=== PATIENT | female | born 1985 | race Caucasian/White ===

== ENCOUNTER 2018-01-31 12:30 | Emergency (ER) | payer OTHER ==
[~2018-01-31] VITALS: Ht 162.6 cm; Wt 63.5 kg
[~2018-01-31 12:30] MED LIST: ALDACTONE25 MG PO; ASSORTED FRUIT G4 GM PO; BUM1 PO; CARVEDILOL3.125 M1 PO; FERROUS SULFAT325 M2 PO; LANTUS SOLOS100 U/M1 SQ; LIPI20 PO; NEURONTIN400 MG PO; NOVOLIN N100 U/ML SC; ZES10 PO
[2018-01-31 12:39] VITALS: Ht 162.6 cm; Wt 63.5 kg
[2018-01-31] MEDS ORDERED: GABAPENTIN600 M1 PO (12:48)
[2018-01-31] MEDS ORDERED: MAVYRET 100-401 EACH PO (12:49)
[2018-01-31] MEDS ORDERED: VELTASSA16.8 GM PO (12:51)
[2018-01-31] MEDS ORDERED: TRESIBA FL100 UNIT/1 SQ (12:51)
[2018-01-31] MEDS ORDERED: CRESTOR10 M1 PO (12:52)
[2018-01-31] MEDS ORDERED: HUMALOG100 U/ML SQ (12:54)
[2018-01-31] MEDS ORDERED: CHLORTHALIDONE25 MG PO (12:56)
[2018-01-31 13:18] LABS: BASOPHIL % 0.2 % (0-2); PLATELET COUNT 287 x10^3mcL (130-400); RED CELL DISTRIBUTION WIDTH 14.1 % (11.5-14.5)
[2018-01-31 13:35] LABS: CALCIUM 8.2 mg/dL (8.5-10.1); CARBON DIOXIDE 23.3 mmol/L (21-32); CREATININE SERUM 1.7 mg/dL (0.6-1.0); POTASSIUM SERUM 5.1 mmol/L (3.5-5.1)
[2018-01-31 13:42] LABS: BILIRUBIN TOTAL 0.6 mg/dL (0.20-1.00); PHOSPHOROUS 3.8 mg/dL (2.5-4.9); TOTAL PROTEIN, SERUM 6.4 g/dL (6.4-8.2)
[2018-01-31 14:52] VITALS: BP 166/98
== END 2018-01-31 14:52 | disposition home or self-care (01) ==
LOC: ED 12:30
PROVIDERS: Emergency Medicine
DX: R07.89 Other chest pain (principal); E16.2 Hypoglycemia, unspecified; I11.0 Hypertensive heart disease with heart failure; I50.9 Heart failure, unspecified; E11.9 Type 2 diabetes mellitus without complications; Z88.0 Allergy status to penicillin; Z88.6 Allergy status to analgesic agent
CPT/HCPCS: 36415; 82962; Q0092